=== PATIENT | male | born 1970 | race Caucasian/White ===

== ENCOUNTER 2025-05-16 16:55 | Emergency (ER) | payer MEDICARE ==
[2025-05-16 17:14] VITALS: TEMP 99; O2SAT 96
[2025-05-16 17:41] LABS: BASOPHIL % 0.7 % (0.2-1.2); Basophil (Absolute #) 0.06 x10^3/uL (0.01-0.08); Eosinophil (Absolute #) 0.14 x10^3/uL (0.04-0.54); Hematocrit 45.9 % (40.1-51.0); Hemoglobin 15.9 g/dL (13.7-17.5); IMMATURE GRAN # 0.02 x10^3u/L (0.001-0.031); IMMATURE GRAN % 0.2 % (0.001-0.429); Lymphocyte (Absolute #) 2.48 x10^3/uL (1.32-3.57); Mean Corpuscular Hemoglobin 33.8 pg (25.7-32.2); Mean Corpuscular Hgb Concent. 34.6 g/dL (32.3-36.5); Monocyte (Absolute #) 0.84 x10^3/uL (0.30-0.82); NUCLEATED RBC # 0.00 x10^3u/L (0.00-0.012); NUCLEATED RBC % 0.0 % (0.00-0.2); Platelet Count 197 x10^3/uL (163-337); Red Blood Count 4.70 x10^6/uL (4.63-6.08); White Blood Count 8.1 x10^3/uL (4.23-9.07)
[2025-05-16 18:32] LABS: Calcium 9.5 mg/dL (8.4-10.2); Carbon Dioxide 27.0 mmol/L (22-30); Creatinine 1 0.98 mg/dL (0.66-1.25); EST GLOMERULAR FILTRATION RATE 91.1 ML/MIN; Glucose 91.0 mg/dL (74-106); Potassium 3.8 mmol/L (3.5-5.1)
--- NOTE | 2025-05-16 18:50 | ERPHSYRPT ---
- History of Present Illness Patient Subjective Stated Complaint: Pt. states, "I had some routine labs checked today ordered by Dr. Aguirre. They called me from his office and told me my salt was too high and I needed to come for a kidney check and to get diluted." Triage Nursing Assessment: Pt. ambulate to room without difficulty, he is A&Ox3, Skin P/W/D, Resp. even unlabored, no edema. Pt. denies any pain or other complains. Physician History: Sent Emergency Department by primary care doctor for abnormal laboratory studies, his sodium was elevated and they wanted his levels rechecked, the patient is asymptomatic Timing/Duration: today Severity: moderate Associated Symptoms: denies symptoms Allergies/Adverse Reactions: No Known Drug Allergies Allergy (Verified 05/01/15 10:15) Home Medications: Lisinopril 10 mg [Zestril 10 MG] 5 mg PO DAILY 04/26/15 [History] Ibuprofen 400 mg PO Q12H PRN PRN 05/01/15 [History] Triamterene/Hydrochlorothiazid [Triamterene-Hctz 37.5-25 mg Tb] 18.5 each PO DAILY 05/01/15 [History] Bupropion HCl Xl 150 mg [Wellbutrin XL 150 MG] 150 mg PO DAILY 05/16/25 [History] Buspirone HCl 7.5 mg PO 05/16/25 [History] Duloxetine HCl 30 mg PO 05/16/25 [History] Lorazepam [Ativan] 1 mg PO BID 05/16/25 [History] Rivaroxaban [Xarelto] 20 mg PO EVENING MEAL 05/16/25 [History] Sertraline HCl 50 mg [Zoloft 50 mg Tablet] 50 mg PO DAILY 05/16/25 [History] Tamsulosin HCl 0.4 mg PO DAILY 05/16/25 [History] Testosterone Cypionate 100 mg IM WEEKLY 05/16/25 [History] dilTIAZem HCL [Diltiazem 24Hr ER ([place])] 120 mg PO DAILY 05/16/25 [History] Hx Tetanus, Diphtheria Vaccination/Date Given: Yes (PT STATES UTD) Hx Influenza Vaccination/Date Given: No Hx Pneumococcal Vaccination/Date Given: No Immunizations Up to Date: No Travel Risk - International Travel Have you traveled outside of the country in past 3 weeks: No - Emerging Infectious Disease Are you exhibiting symptoms associated with any current EIDs: No - Past Medical History Pertinent Past Medical History: Yes Neurological History: Migraines ENT History: Other Cardiac History: Congestive Heart Failure, Hypertension Respiratory History: CHF Endocrine Medical History: Diabetes Type II Musculoskeletal History: Arthritis GI Medical History: Diverticulitis, Hernia History: No Pertinent History Psycho-Social History: No Pertinent History Male Reproductive Disorders: Prostate Problems Other Medical History: Dr. 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 C4,C5 discectomy and laminectomy- Dr. Herndon January 2021. 3 stents placed in hear cath (RCA, OM, Circumflux) in February, Open Heart Surgery, mitral valve repai- 2011. 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 - Past Surgical History Past Surgical History: Yes Neuro Surgical History: No Pertinent History Cardiac: Other Respiratory: No Pertinent History Gastrointestinal: Appendectomy, Hernia Repair Genitourinary: No Pertinent History Musculoskeletal: No Pertinent History Male Surgical History: No Pertinent History Other Surgical History: atrial/septal defect repaired and mitral valve repair - Social History Smoking Status: Former smoker Exposure to second hand smoke: No Drug Use: none - Social Determinants of Health Will the patient participate in the screening: Declined to provide - Nursing Vital Signs Nursing Vital Signs: Initial Vital Signs Temperature 99.0 F 05/16/25 16:56 Pulse Rate 80 05/16/25 16:56 Respiratory Rate 14 05/16/25 16:56 Blood Pressure 146/83 05/16/25 16:56 O2 Sat by Pulse Oximetry 96 05/16/25 16:56 Pain Scale Pain Intensity 0 - Physical Exam General Appearance: no apparent distress, alert Eye Exam: PERRL/EOMI, eyes nml inspection Ears, Nose, Throat Exam: normal ENT inspection, TMs normal, pharynx normal, moist mucous membranes Neck Exam: normal inspection, non-tender, supple, full range of motion Respiratory Exam: normal breath sounds, lungs clear, No respiratory distress Cardiovascular Exam: regular rate/rhythm, normal heart sounds, normal peripheral pulses Gastrointestinal/Abdomen Exam: soft, normal bowel sounds, No tenderness, No mass Back Exam: normal inspection, normal range of motion, No CVA tenderness, No vertebral tenderness Extremity Exam: normal inspection, normal range of motion, pelvis stable Neurologic Exam: alert, oriented x 3, cooperative, normal mood/affect, nml cerebellar function, nml station & gait, sensation nml, No motor deficits Skin Exam: normal color, warm, dry, No rash Lymphatic Exam: No adenopathy SpO2 Interpretation: normal SpO2: 96 Ordered Tests: Active Orders 24 hr Category Date Time Status BMP Stat Lab 05/16/25 17:35 Completed CBC W DIFF Stat Lab 05/16/25 17:35 Completed UA W/RFX UR CULTURE Stat Lab 05/16/25 17:24 Ordered Lab/Rad Data: Laboratory Result Diagrams 05/16/25 17:35 05/16/25 17:35 Laboratory Results 05/16/25 05/16/25 Range/Units 17:35 17:35 WBC 8.1 (4.23-9.07) x10^3/uL RBC 4.70 (4.63-6.08) x10^6/uL Hgb 15.9 (13.7-17.5) g/dL Hct 45.9 (40.1-51.0) % MCV 97.7 H (79.0-92.2) fL MCH 33.8 H (25.7-32.2) pg MCHC 34.6 (32.3-36.5) g/dL RDW 11.9 (11.6-14.4) % Plt Count 197 (163-337) x10^3/uL MPV 10.2 (9.4-12.4) fL Gran % 56.6 (34.0-67.9) % Immature Gran % (Auto) 0.2 (0.001-0.429) % Nucleat RBC Rel Count 0.0 (0.00-0.2) % Eos # (Auto) 0.14 (0.04-0.54) x10^3/uL Immature Gran # (Auto) 0.02 (0.001-0.031) x10^3u/L Absolute Lymphs (auto) 2.48 (1.32-3.57) x10^3/uL Absolute Monos (auto) 0.84 H (0.30-0.82) x10^3/uL Absolute Nucleated RBC 0.00 (0.00-0.012) x10^3u/L Lymphocytes % 30.5 (21.8-53.1) % Monocytes % 10.3 (5.3-12.2) % Eosinophils % 1.7 (0.8-7.0) % Basophils % 0.7 (0.2-1.2) % Absolute Granulocytes 4.58 (1.78-5.38) x10^3/uL Basophils # 0.06 (0.01-0.08) x10^3/uL Sodium 137 D (135-145) mmol/L Potassium 3.8 (3.5-5.1) mmol/L Chloride 103 (98-107) mmol/L Carbon Dioxide 27 (22-30) mmol/L Anion Gap 10.9 (5-15) MEQ/L BUN 18 (9-20) mg/dL Creatinine 0.98 (0.66-1.25) mg/dL Estimated GFR 91.1 ML/MIN Glucose 91 (74-106) mg/dL Calcium 9.5 (8.4-10.2) mg/dL - Progress Progress Note: 05/16/25 18:49 Remains asymptomatic, discussed laboratory studies, recommend he follow-up with his primary care doctor - Departure Departure Disposition: Home Clinical Impression: Encounter for medical screening examination Condition: Fair Critical Care Time: No Referrals: ELIZABETH AGUIRRE MD [Primary Care Provider, [facility]] - Follow up with PCP 7 days Instructions: Electrolyte panel
[2025-05-16 18:52] VITALS: BP 132/78; PULSE 70
[2025-05-16 19:10] VITALS: RESP 18
== END 2025-05-16 19:11 | disposition home or self-care (01) ==
LOC: ED 16:55
DX: Z71.1 Person with feared health complaint in whom no diagnosis is made (principal); I11.0 Hypertensive heart disease with heart failure; I50.9 Heart failure, unspecified; E11.9 Type 2 diabetes mellitus without complications; Z79.02 Long term (current) use of antithrombotics/antiplatelets; Z79.899 Other long term (current) drug therapy